=== PATIENT | male | born 1970 | race Caucasian/White ===

== ENCOUNTER 2021-08-10 07:19 | Emergency (ER) | payer BC ==
[~2021-08-10] VITALS: Ht 177.8 cm; Wt 83.9 kg
[2021-08-10] MEDS ORDERED: HYDROCODON-ACE1 EA11 PO (07:56)
[2021-08-10] MEDS ORDERED: VALTREX1000 MG PO (07:56)
[2021-08-10] MEDS ORDERED: PREDNISONE20 MG PO (07:56)
== END 2021-08-10 08:05 | disposition home or self-care (01) ==
LOC: ER 07:30
DX: B02.9 Zoster without complications (principal); I10 Essential (primary) hypertension; K21.9 Gastro-esophageal reflux disease without esophagitis; F17.210 Nicotine dependence, cigarettes, uncomplicated
CPT/HCPCS: 99283